=== PATIENT | male | born 1930 | race Two or more races ===

== ENCOUNTER 2016-07-29 00:14 | Emergency (ER) | payer MEDICARE, OTHER ==
[~2016-07-29] VITALS: Ht 167.6 cm; Wt 67.6 kg
[~2016-07-29 00:14] MED LIST: ALBUTEROL SULF8.5 GM INH; AZITHROMYCIN250 MG ORAL; COLACE100 MG ORAL; CRESTOR10 M2 ORAL; DAILY MULTIPLE1 EACH ORAL; FERROUS SULFAT325 MG ORAL; IRON159 MG PO; METRONIDAZOLE500 MG ORAL; MULTIVITAMINS1 EAC2 ORAL; NAPROXEN500 M2 ORAL; NEXAFED30 MG ORAL; OMEGA 3 FISH O1 EAC1 PO; OMEGA-31000 M1 PO; OMEPRAZOLE20 M2 ORAL; RANITIDINE HCL150 M2 PO; SUCRALFATE1 GM/10 ML PO; TRAMADOL HCL50 MG ORAL; TYLENOL EXTRA500 MG ORAL; TYLENOL325 MG ORAL; VITAMIN D1000 UNI1 ORAL; VITAMIN D250000 UNI1 ORAL
[2016-07-29 00:40] VITALS: BP 148/72
--- NOTE | 2016-07-29 00:41 | Emergency Room Report ---
History of Present Illness General Chief Complaint: Dyspnea/Respdistress Source: Patient, Family Member Present Illness HPI Is an 86-year-old male with a history hypertension and asthma/COPD. He present with shortness of breath. Onset this afternoon. Worse with coughing. He does have a runny nose and congestion. No fever chills but no nausea no vomiting no chest pain. Better now after daughter put him eucalyptus oil in his nose. Allergies: Coded Allergies: SULFA (SULFONAMIDE ANTIBIOTICS) (Unverified Allergy, Unknown, 03/09/15) Patient History Past Medical History: see triage record, old chart reviewed, HTN, asthma, COPD Past Surgical History: other Pertinent Family History: none Social History: Denies: smoking Immunizations: other Reviewed Nursing Documentation: PMH: Agreed, PSxH: Agreed Nursing Documentation-PMH Hx Cardiac Problems: No - high cholesterol Hx Hypertension: No - ARTHRITIS Hx Pacemaker: No Hx Asthma: Yes Hx COPD: No Hx Diabetes: No Hx Cancer: No Hx Gastrointestinal Problems: Yes Hx Dialysis: No Hx Neurological Problems: No Hx Cerebrovascular Accident: No Hx Seizures: No Review of Systems Eye: Denies: blurred vision, eye pain ENT: Denies: ear pain, nose congestion, throat swelling Respiratory: Reports: cough, shortness of breath Cardiovascular: Denies: chest pain, palpitations Gastrointestinal: Denies: abdominal pain, diarrhea, nausea, vomiting Musculoskeletal: Denies: back pain, joint pain Skin: Denies: rash Neurological: Denies: headache, numbness Endocrine: Denies: increased thirst, increased urine Hematologic/Lymphatic: Denies: easy bruising All Other Systems: negative except mentioned in HPI Physical Exam Vital Signs Date Time Temp Pulse Resp B/P Pulse Ox O2 Delivery O2 Flow Rate FiO2 07/29/16 00:16 97.5 71 20 166/74 98 Room Air vital showed hypertension Sp02 EP Interpretation: reviewed, normal General Appearance: well appearing, no apparent distress, alert Head: normocephalic, atraumatic Eyes: bilateral eye EOMI, bilateral eye PERRL ENT: hearing grossly normal, normal pharynx Neck: full range of motion, supple, no meningismus Respiratory: chest non-tender, lungs clear, normal breath sounds, decreased breath sounds Cardiovascular #1: regular rate, rhythm, no murmur Gastrointestinal: normal bowel sounds, non tender, no mass, no organomegaly, no bruit, non-distended Musculoskeletal: back normal, gait/station normal, normal range of motion Neurologic: alert, oriented x3 Psychiatric: mood/affect normal Skin: warm/dry Medical Decision Making Diagnostic Impression: Primary Impression: Dyspnea Qualified Codes: R06.00 - Dyspnea, unspecified Additional Impression: Asthma Qualified Codes: J45.21 - Mild intermittent asthma with (acute) exacerbation ER Course Patient presents with asthma exacerbation. He fell better now. Labs unremarkable. No evidence of pneumonia. No evidence of ACS, PE, dissection. He is using a long-acting beta agonist instead of albuterol. We'll switch him to albuterol. Lab Results Impression labs normal EKG Diagnostic Results Rate: normal Rhythm: NSR ST Segments: no acute changes Rhythm Strip Diag. Results EP Interpretation: yes Rate: 70 Rhythm: NSR, no PVC's, no ectopy Chest X-Ray Diagnostic Results EP Interpretation: Yes Findings: no consolidation, no effusion, no pneumothorax, no acute cardiopulmonary disease Number of Views: 1 Last Vital Signs Date Time Temp Pulse Resp B/P Pulse Ox O2 Delivery O2 Flow Rate FiO2 07/29/16 00:16 97.5 71 20 166/74 98 Room Air Status: improved Disposition: HOME, SELF-CARE Condition: Stable Scripts Prednisone* (PREDNISONE*) 20 Mg Tablet 40 MG ORAL DAILY, #10 TAB Prov: IVONNE MIGUEL M.D. 07/29/16 Albuterol Sulfate* (ALBUTEROL SULFATE MDI*) 8.5 Gm Hfa.aer.ad 2 PUFF INH Q4H Y for cough/wheezing, #1 EA 0 Refills Prov: IVONNE MIGUEL M.D. 07/29/16 Patient Instructions: Chronic Obstructive Pulmonary Disease Exacerbation Additional Instructions: Followup your DrLaura in 2-3 days. Return if worse. IVONNE MIGUEL M.D. Jul 29, 2016 00:41
[2016-07-29] MEDS ORDERED: Solu-MEDROL 125mg Inj IVP ONE (00:45)
[2016-07-29] MEDS ORDERED: Albuterol ud Inhalation HHN ONE (00:45)
[2016-07-29] MEDS ORDERED: Ipratropium 0.02% Inh Soln 2.5ml UD HHN ONE (00:45)
[2016-07-29] MEDS ORDERED: TAMSULOSIN HCL0.4 MG ORAL (01:05)
[2016-07-29 01:15] LABS: BASOPHILS % (AUTO) 1.3 % (0.0-2.0); EOSINOPHILS % (AUTO) 3.1 % (0.0-3.0); LYMPHOCYTES % (AUTO) 27.1 % (20.0-45.0); MEAN CORPUSCULAR HEMOGLOBIN 32.2 PG (27.0-31.0); MEAN CORPUSCULAR HGB CONC 35.5 G/DL (32.0-36.0); MEAN CORPUSCULAR VOLUME 91 FL (80-99); MEAN PLATELET VOLUME 8.7 FL (6.5-10.1); NEUTROPHILS % (AUTO) 59.3 % (45.0-75.0); PLATELET COUNT 132 K/UL (150-450); RED BLOOD COUNT 3.64 M/UL (4.70-6.10); RED CELL DISTRIBUTION WIDTH 17.6 % (11.6-14.8); WHITE BLOOD COUNT 7.3 K/UL (4.8-10.8)
[2016-07-29 01:25] LABS: TROPONIN I < 0.30 ng/mL (<=0.30)
[2016-07-29 01:29] LABS: ALANINE AMINOTRANSFERASE 10 U/L (3-41); ALBUMIN/GLOBULIN RATIO 1.9 (1.0-2.7); ANION GAP 11 (5-15); ASPARTATE AMINO TRANSFERASE 14 U/L (5-40); CALCIUM 9.2 mg/dL (8.6-10.2); CARBON DIOXIDE 28 mEQ/L (20-30); CHLORIDE 97 mEQ/L (98-107); CREATININE 0.8 mg/dL (0.7-1.2); HEMOLYSIS 3; POTASSIUM 4.7 mEQ/L (3.4-4.9); SODIUM 136 mEQ/L (135-145); TOTAL PROTEIN 6.7 g/dL (6.6-8.7)
[2016-07-29 01:40] LABS: CKMB < 1.5 ng/mL (< 6.7)
[2016-07-29] MEDS ORDERED: PREDNISONE20 MG ORAL (02:13)
[2016-07-29] MEDS ORDERED: ALBUTEROL SULF8.5 GM INH (02:13)
[2016-07-29 02:29] VITALS: BP 136/76
[2016-07-29 02:30] VITALS: BP 136/76
--- NOTE | 2016-07-29 11:11 | Diagnostic Imaging Report ---
Indication: Dyspnea Comparison: 05/24/16 A single view chest radiograph was obtained. Findings: No definite infiltrate or pulmonary vascular congestion identified. The heart is within normal limits. The aorta is mildly enlarged consistent with atherosclerotic vascular disease. The bones are osteopenic. Impression: No acute disease
--- NOTE | 2016-07-30 12:38 | Cardiology Report ---
APPROVED REPORT EKG Measurement Heart [id number] CO [id number] [id number] Sinus rhythm with premature supraventricular complexes Prolonged QT Abnormal ECG
== END 2016-07-29 02:31 | disposition home or self-care (01) ==
LOC: EMR 00:52
DX: J45.901 Unspecified asthma with (acute) exacerbation (principal); I10 Essential (primary) hypertension; Z88.2 Allergy status to sulfonamides
CPT/HCPCS: 36415; 71010; 80053; 82550; 82553; 83880; 84484; 85025; 93005; 94640; 94664; 96374; 99284; J2930

== ENCOUNTER 2017-03-29 19:54 | Emergency (ER) | payer MEDICARE, OTHER ==
[~2017-03-29] VITALS: Ht 165.1 cm; Wt 68.0 kg
[~2017-03-29 19:54] MED LIST changes: +PREDNISONE20 MG ORAL; +TAMSULOSIN HCL0.4 MG ORAL
[2017-03-29 20:20] VITALS: BP 164/80
--- NOTE | 2017-03-29 21:04 | Emergency Room Report ---
History of Present Illness General Chief Complaint: Abdominal Pain Source: Patient Present Illness HPI 86-year-old male history of appendectomy, arthritis, p/w abdominal pain 4 days. Patient states pain started gradually, localized to right middle quadrant, non radiating, sharp/burning in nature, intermittent. Pain is worse with eating. Denies nvd. Denies fever, chills. Last bowel movement was this morning and it was normal Patient has still been able to tolerate by mouth No hx of endoscopies/colonoscopies. Denies any chest pain shortness of breath Allergies: Coded Allergies: SULFA (SULFONAMIDE ANTIBIOTICS) (Unverified Allergy, Unknown, 03/09/15) Patient History Past Medical History: see triage record Past Surgical History: none Pertinent Family History: none Reviewed Nursing Documentation: PMH: Agreed, PSxH: Agreed Nursing Documentation-PMH Hx Cardiac Problems: No - high cholesterol Hx Hypertension: No - ARTHRITIS Hx Pacemaker: No Hx Asthma: Yes Hx COPD: No Hx Diabetes: No Hx Cancer: No Hx Gastrointestinal Problems: Yes Hx Dialysis: No Hx Neurological Problems: No Hx Cerebrovascular Accident: No Hx Seizures: No Review of Systems All Other Systems: negative except mentioned in HPI Physical Exam Vital Signs Date Time Temp Pulse Resp B/P (MAP) Pulse Ox O2 Delivery O2 Flow Rate FiO2 03/29/17 20:10 97.9 72 18 164/80 95 Room Air Sp02 EP Interpretation: reviewed, normal General Appearance: normal inspection, well appearing, no apparent distress, alert, GCS 15, non-toxic Head: normocephalic, atraumatic Eyes: bilateral eye normal inspection, bilateral eye PERRL, bilateral eye EOMI ENT: normal ENT inspection, normal pharynx, normal voice, moist mucus membranes Neck: normal inspection, full range of motion, supple Respiratory: normal inspection, lungs clear, normal breath sounds, no respiratory distress, no retraction, no wheezing, speaking full sentences, chest symmetrical Cardiovascular #1: normal inspection, regular rate, rhythm, no edema, normal capillary refill Cardiovascular #2: 2+ radial (R), 2+ radial (L) Gastrointestinal: soft, non-distended, no guarding, other - Well-healed surgical scar right lower quadrant, tender to palpation right mid abdomen, no guarding or rebound, no CVA tenderness bilaterally Genitourinary: no CVA tenderness Musculoskeletal: normal inspection, back normal, normal range of motion, non- tender Neurologic: normal inspection, alert, oriented x3, responsive, motor strength/ tone normal, sensory intact, normal gait, speech normal Psychiatric: normal inspection, judgement/insight normal, memory normal Skin: normal inspection, normal color, no rash, warm/dry, well hydrated, normal turgor Medical Decision Making Diagnostic Impression: Primary Impression: Abdominal pain ER Course 86-year-old male history of appendectomy presents with abdominal pain x4 days Differential Diagnosis: Gastritis, gastroenteritis, diverticulitis, SBO, mesenteric ischemia, UTI/pyelo Plan: Basic labs, ua, ekg pain control, IVF CT abdopelvis / CTA abdo pelvis ER course: Patient has remained stable during ED stay. Pain improved. Repeat abdominal exam is nontender. CT: ?mesenteric adenitis no acute surgical pathology Disposition: Patient is to be discharged to home. Patient is instructed to follow up with their primary care doctor within 5 days. Strict return precautions discussed with patient such as fever, chills, worsening/severe abdominal pain, nausea, vomiting, black or bloody stools, which may indicate severe illness. Patient verbalizes understanding and agrees with plan. Please note that this Emergency Department Report was dictated using [employer] printer technology software, occasionally this can lead to erroneous entry secondary to interpretation by the dictation equipment Laboratory Tests Test 03/29/17 22:51 03/29/17 23:14 White Blood Count 8.2 K/UL (4.8-10.8) Red Blood Count 3.53 M/UL (4.70-6.10) L Hemoglobin 11.0 G/DL (14.2-18.0) L Hematocrit 34.3 % (42.0-52.0) L Mean Corpuscular Volume 97 FL (80-99) Mean Corpuscular Hemoglobin 31.3 PG (27.0-31.0) H Mean Corpuscular Hemoglobin Concent 32.2 G/DL (32.0-36.0) Red Cell Distribution Width 17.3 % (11.6-14.8) H Platelet Count 135 K/UL (150-450) L Mean Platelet Volume 7.1 FL (6.5-10.1) Neutrophils (%) (Auto) 60.3 % (45.0-75.0) Lymphocytes (%) (Auto) 27.4 % (20.0-45.0) Monocytes (%) (Auto) 7.7 % (1.0-10.0) Eosinophils (%) (Auto) 3.5 % (0.0-3.0) H Basophils (%) (Auto) 1.2 % (0.0-2.0) Sodium Level 139 mEQ/L (135-145) Potassium Level 4.6 mEQ/L (3.4-4.9) Chloride Level 102 mEQ/L (98-107) Carbon Dioxide Level 26 mEQ/L (20-30) Anion Gap 11 (5-15) Blood Urea Nitrogen 18 mg/dL (7-23) Creatinine 0.9 mg/dL (0.7-1.2) Estimate Glomerular Filtration Rate mL/min (>60) Glucose Level 111 mg/dL (74-106) H Calcium Level 9.0 mg/dL (8.6-10.2) Total Bilirubin 0.3 mg/dL (0.0-1.2) Aspartate Amino Transferase (AST) 16 U/L (5-40) Alanine Aminotransferase (ALT) 12 U/L (3-41) Alkaline Phosphatase 63 U/L (40-129) Total Creatine Kinase 53 U/L (38-174) Creatine Kinase MB 1.7 ng/mL (< 6.7) Creatine Kinase MB Relative Index 3.2 Troponin I < 0.30 ng/mL (<=0.30) Total Protein 6.6 g/dL (6.6-8.7) Albumin 4.1 g/dL (3.5-5.2) Globulin 2.5 g/dL Albumin/Globulin Ratio 1.6 (1.0-2.7) Lipase 21 U/L (< 60) Urine Color Pale yellow Urine Appearance Clear Urine pH 7 (4.5-8.0) Urine Specific [place] 1.005 (1.005-1.035) Urine Protein Negative (NEGATIVE) Urine Glucose (UA) Negative (NEGATIVE) Urine Ketones Negative (NEGATIVE) Urine Occult Blood Negative (NEGATIVE) Urine Nitrite Negative (NEGATIVE) Urine Bilirubin Negative (NEGATIVE) Urine Urobilinogen Normal MG/DL (0.0-1.0) Urine Leukocyte Esterase Negative (NEGATIVE) EKG Diagnostic Results Rate: normal Rhythm: NSR ST Segments: no acute changes ASA given to the pt in ED: No CT/MRI/US Diagnostic Results CT/MRI/US Diagnostic Results : Imaging Test Ordered: CT abdo pelvis Impression CT ABDOMEN & PELVIS With Contrast: Compared to CT abdomen 01/17 No bowel obstruction. The appendix is not reliably identified. Colonic diverticulosis without CT evidence of acute diverticulitis. Multiple mildly enlarged mesenteric lymph nodes, greatest in the right lower quadrant, may be due to mesenteric adenitis or enteritis, among others. No CT evidence of acute cholecystitis or acute pancreatitis. No urinary obstruction. Mild urinary bladder wall thickening, may be due to cystitis. Urinary bladder diverticulum, similar to prior. Postoperative changes of right inguinal hernia repair. No free fluid. No free air. Electronically signed by Frank Vasquez MD Last Vital Signs Date Time Temp Pulse Resp B/P (MAP) Pulse Ox O2 Delivery O2 Flow Rate FiO2 03/29/17 20:10 97.9 72 18 164/80 95 Room Air Disposition: HOME, SELF-CARE Condition: Improved Frank Vasquez M.D. Mar 29, 2017 21:04
[2017-03-29 23:19] LABS: BASOPHILS % (AUTO) 1.2 % (0.0-2.0); EOSINOPHILS % (AUTO) 3.5 % (0.0-3.0); LYMPHOCYTES % (AUTO) 27.4 % (20.0-45.0); MEAN CORPUSCULAR HEMOGLOBIN 31.3 PG (27.0-31.0); MEAN CORPUSCULAR HGB CONC 32.2 G/DL (32.0-36.0); MEAN CORPUSCULAR VOLUME 97 FL (80-99); MEAN PLATELET VOLUME 7.1 FL (6.5-10.1); MONOCYTES % (AUTO) 7.7 % (1.0-10.0); NEUTROPHILS % (AUTO) 60.3 % (45.0-75.0); PLATELET COUNT 135 K/UL (150-450); RED BLOOD COUNT 3.53 M/UL (4.70-6.10); RED CELL DISTRIBUTION WIDTH 17.3 % (11.6-14.8); WHITE BLOOD COUNT 8.2 K/UL (4.8-10.8)
[2017-03-29 23:29] LABS: ALANINE AMINOTRANSFERASE 12 U/L (3-41); ALBUMIN/GLOBULIN RATIO 1.6 (1.0-2.7); ANION GAP 11 (5-15); ASPARTATE AMINO TRANSFERASE 16 U/L (5-40); CARBON DIOXIDE 26 mEQ/L (20-30); CHLORIDE 102 mEQ/L (98-107); CREATININE 0.9 mg/dL (0.7-1.2); HEMOLYSIS 2; LIPASE 21 U/L (< 60); POTASSIUM 4.6 mEQ/L (3.4-4.9); SODIUM 139 mEQ/L (135-145); TOTAL PROTEIN 6.6 g/dL (6.6-8.7); TROPONIN I < 0.30 ng/mL (<=0.30)
[2017-03-29 23:39] LABS: CKMB 1.7 ng/mL (< 6.7)
[2017-03-29 23:47] LABS: APPEARANCE,URINE CLEAR; KETONES,URINE NEGATIVE (NEGATIVE); LEUKOCYTE ESTERASE ,URINE NEGATIVE (NEGATIVE); NITRITE,URINE NEGATIVE (NEGATIVE); PH,URINE 7 (4.5-8.0); PROTEIN,URINE NEGATIVE (NEGATIVE); UROBILINOGEN,URINE NORMAL MG/DL (0.0-1.0)
[2017-03-30 00:12] VITALS: BP 157/72
[2017-03-30 01:46] VITALS: BP 157/72
--- NOTE | 2017-03-30 11:50 | Diagnostic Imaging Report ---
Indication: Abdominal pain, right lower quadrant pain for 3 days Comparison: 01/26/2013 CT the abdomen and pelvis Technique: Contiguous helical CT images through the abdomen pelvis was performed with intravenous and oral contrast. Axial, coronal and sagittal reconstructions were reformatted. CT Dose: Total DLP: 716 mGycm; Total CTDI volume 20.2 Findings: The liver, gallbladder, spleen, pancreas, adrenal glands and kidneys are normal. There is no bowel obstruction. No free fluid or free air. Colonic diverticulosis without diverticulitis is noted, not significantly changed. Aortic calcifications are noted in a normal caliber aorta. Mild urinary bladder wall thickening is noted; correlate with cystitis. Multiple mildly enlarged mesenteric lymph nodes are seen, greatest in the right lower quadrant, which may be due to mesenteric adenitis or enteritis, among others. Correlate clinically. No acute osseous abnormalities. Lung bases are clear. IMPRESSION: No definite acute abnormalities of the abdomen or pelvis. Multiple mildly enlarged mesenteric lymph nodes, greatest in the right lower quadrant, may be due to mesenteric adenitis or enteritis, among others. Colonic diverticulosis without diverticulitis. The above report agrees with preliminary report by [employer].
--- NOTE | 2017-04-21 17:44 | Cardiology Report ---
APPROVED REPORT EKG Measurement Heart [id number] Normal sinus rhythm Normal ECG
== END 2017-03-30 01:46 | disposition home or self-care (01) ==
LOC: EMR 20:30
DX: R10.9 Unspecified abdominal pain (principal); K57.30 Diverticulosis of large intestine without perforation or abscess without bleeding; J45.909 Unspecified asthma, uncomplicated; Z88.2 Allergy status to sulfonamides
CPT/HCPCS: 36415; 74177; 80053; 81003; 82550; 82553; 83690; 84484; 85025; 93005; 96374; 99284; Q9967; S0028